=== PATIENT | female | born 1955 | race Caucasian/White ===

== ENCOUNTER → 2016-11-13 | Outpatient (CLI) | payer OTHER | LOC: FIMAGING 09:58 | PROVIDERS: ATTEND Physical Medicine & Rehabilitation | DX: M48.02 Spinal stenosis, cervical region (principal); M50.321 Other cervical disc degeneration at C4-C5 level; M50.322 Other cervical disc degeneration at C5-C6 level ==

== ENCOUNTER → 2017-02-02 | Outpatient (CLI) | payer OTHER | LOC: EEVIPCON 13:01 → FIMAGING 13:01 | PROVIDERS: ATTEND Obstetrics & Gynecology Gynecology | DX: Z12.31 Encounter for screening mammogram for malignant neoplasm of breast (principal); Z80.3 Family history of malignant neoplasm of breast | CPT/HCPCS: G0202 ==

== ENCOUNTER 2017-02-10 08:13 | Day surgery (SDC) | payer OTHER ==
[2017-02-10] MEDS ORDERED: NS 500 ML IV ONE (08:38)
[2017-02-10] MEDS ORDERED: LIDOCAINE 1% 2 ML INJ ID PRN (08:38)
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
[2017-02-10] MEDS ORDERED: ALBUTEROL 3 ML DEYVIAL IH PRN (09:29)
[2017-02-10] MEDS ORDERED: ACETAMINOPHEN 500 MG TAB PO PRN (09:29)
[2017-02-10] MEDS ORDERED: NALOXONE HCL 0.4 MG/ML INJ IVP PRN (09:29)
[2017-02-10] MEDS ORDERED: ONDANSETRON 4 MG/2 ML VIAL IVP PRN (09:29)
[2017-02-10] MEDS ORDERED: PROPOFOL/EMULSION 500 MG/50 ML BOTTLE IV ONE (09:56)
[2017-02-10] MEDS ORDERED: PROPOFOL 200 MG/20 ML VIAL ONE (09:56)
[2017-02-10] MEDS ORDERED: epHEDrine SULFATE 10 MG/ML SYR ONE (10:23)
--- NOTE | 2017-02-10 10:31 | GIREPORT ---
[facility] - Endoscopy Department Patient Name: Herlinda Childress Procedure Date: 02/10/2017 9:03 AM Patient Type: Outpatient Attending MD/ ER Physician: Alhaji Pardo MD Procedure: Colonoscopy Indications: Screening for colorectal malignant neoplasm, Family history of colon ca ncer in multiple first-degree relatives Providers: Alhaji Pardo MD Referring MD: Niles Contreras MD Medicines: General Anesthesia Complications: No immediate complications. Description of Procedure: After obtaining informed consent, the scope was passed under direct vis ion. Throughout the procedure, the patient's blood pressure, pulse, and oxyg en saturations were monitored continuously. The Colonoscope was introduced through the anus and advanced to the terminal ileum. The colonoscopy wa s somewhat difficult due to significant looping and a tortuous colon. Successful completion of the procedure was aided by using manual pressu re and straightening and shortening the scope to obtain bowel loop reducti on. The patient tolerated the procedure well. The quality of the bowel preparation was excellent. Findings: The terminal ileum appeared normal. The colon (entire examined portion) appeared normal. The perianal and digital rectal examinations were normal. Estimated Blood Loss: Estimated blood loss: none. Post Op Diagnosis: - The examined portion of the ileum was normal. - The entire examined colon is normal. - No specimens collected. Recommendation: - Discharge patient to home (with spouse). - Patient has a contact number available for emergencies. The signs and symptoms of potential delayed complications were discussed with the pat ient. Return to normal activities tomorrow. Written discharge instructions we re provided to the patient. - Advance diet as tolerated today. - Continue present medications. - Repeat colonoscopy in 5 years for surveillance. Attending Participation: I personally performed the entire procedure. Alhaji Pardo MD Alhaji Pardo MD 02/10/2017 10:31:15 AM This report has been signed electronicallyAlhaji Pardo MD Number of Addenda: 0 Note Initiated On: 02/10/2017 9:03 AM Total Procedure Duration Time 0 hours 22 minutes 30 seconds [email or web address]
--- NOTE | 2017-02-10 10:32 | POSTANESTH ---
Post Anesthetic Evaluation Cardiovascular Status: Normal, Stable Respiratory Status: Normal, Stable Level of Consciousness/Mental Status: Can Participate in Eval, Alert and Oriented Pain Control: Adequate, Prn Tx Ordered Nausea/Vomiting Control: Adequate, Prn Tx Ordered Complications Possibly Related to Anesthesia: None Noted
[2017-02-10 11:14] VITALS: BP 94/64; PULSE 67; RESP 16; TEMP 97.5; O2SAT 94
== END 2017-02-10 11:45 | disposition home or self-care (01) ==
LOC: FSGY 08:13
PROVIDERS: ATTEND Internal Medicine Gastroenterology
PROC: 0DJD8ZZ Inspection of Lower Intestinal Tract, Via Natural or Artificial Opening Endoscopic (ICD-10-PCS; principal; 2017-02-10 09:00)
DX: Z12.11 Encounter for screening for malignant neoplasm of colon (principal); Z86.010 Personal history of colon polyps; Z80.0 Family history of malignant neoplasm of digestive organs
CPT/HCPCS: J2704

== ENCOUNTER 2017-07-10 00:06 | Emergency (ER) | payer OTHER ==
[2017-07-10] MEDS ORDERED: ASPIRIN 81 MG CHEWABLE TAB PO ONE (00:16)
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
--- NOTE | 2017-07-10 00:25 | CPEKG ---
Heart Rate: 64 RR Interval: 938 P-R Interval: 152 QRSD Interval: 102 QT Interval: 444 QTC Interval: 458 P [place]: 58 QRS [place]: 83 T Wave [place]: 43 EKG Severity - BORDERLINE ECG - EKG Impression: SINUS RHYTHM EKG Impression: BORDERLINE RIGHT AXIS DEVIATION EKG Impression: BORDERLINE INFERIOR Q WAVES Electronically Signed By: Axel Massey 10-Jul-2017 06:44:13
[2017-07-10 01:03] LABS: INR 1.02 (0.83-1.16); PROTIME(PATIENT) 13.6 SEC (12.0-15.0)
[2017-07-10 01:10] LABS: PLATELET COUNT 264 10^3/uL (150-400)
[2017-07-10 01:16] LABS: CREATINE KINASE 74 IU/L (0-156)
[2017-07-10] MEDS ORDERED: LIDOCAINE 2% VISCOUS 15 ML UDCUP PO ONE (01:32)
[2017-07-10] MEDS ORDERED: MAG HYDROX/AL HYDROX/SIMETH 30 ML UDCUP PO ONE (01:32)
[2017-07-10] MEDS ORDERED: HYOSCYAMINE SULFATE 0.125 MG TAB PO ONE (01:32)
--- NOTE | 2017-07-10 04:58 | CPEKG ---
Heart Rate: 69 RR Interval: 870 P-R Interval: 160 QRSD Interval: 104 QT Interval: 440 QTC Interval: 472 P [place]: 66 QRS [place]: 85 T Wave [place]: 48 EKG Severity - OTHERWISE NORMAL ECG - EKG Impression: SINUS RHYTHM EKG Impression: BORDERLINE RIGHT AXIS DEVIATION Electronically Signed By: Axel Massey 10-Jul-2017 06:44:13
[2017-07-10 05:09] VITALS: BP 121/70
== END 2017-07-10 05:07 | disposition home or self-care (01) ==
DX: R07.9 Chest pain, unspecified (principal); Z91.040 Latex allergy status

== ENCOUNTER 2017-08-31 07:10 | Day surgery (SDC) | payer OTHER ==
[2017-08-31] MEDS ORDERED: LR 1,000 ML IV ONE (07:26)
[2017-08-31] MEDS ORDERED: LIDOCAINE 1% 2 ML INJ ID PRN (07:26)
[2017-08-31] MEDS ORDERED: LIDOCAINE 1% 2 ML INJ ONE (07:33)
[2017-08-31] MEDS ORDERED: ALBUTEROL 3 ML DEYVIAL IH PRN (08:13)
[2017-08-31] MEDS ORDERED: NALOXONE HCL 0.4 MG/ML INJ IVP PRN (08:13)
[2017-08-31] MEDS ORDERED: DEXAMETHASONE 4 MG/ML VIAL IVP PRN (08:13)
[2017-08-31] MEDS ORDERED: ONDANSETRON 4 MG/2 ML VIAL IVP PRN (08:13)
[2017-08-31] MEDS ORDERED: fentaNYL 100 MCG/2 ML INJ IVP PRN (08:13)
[2017-08-31] MEDS ORDERED: HYDROmorphONE/DILAUDID 1 MG/ML INJ IVP PRN (08:13)
--- NOTE | 2017-08-31 08:22 | PDHPUP ---
History & Physical Update H&P update statement: This history and physical update is based on an assessment of the patient which was completed after admission or registration (within 24 hours), but prior to the surgery/procedure. H&P update: H&P reviewed & patient examined, no change in patient's condition since H&P completed
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
[2017-08-31] MEDS ORDERED: PROPOFOL/EMULSION 500 MG/50 ML BOTTLE IV ONE (08:25)
[2017-08-31] MEDS ORDERED: fentaNYL 100 MCG/2 ML INJ ONE (08:29)
[2017-08-31] MEDS ORDERED: ONDANSETRON 4 MG/2 ML VIAL ONE (08:56)
[2017-08-31] MEDS ORDERED: KETOROLAC 30 MG/1 ML SDV ONE (08:56)
[2017-08-31] MEDS ORDERED: DEXAMETHASONE 4 MG/ML VIAL ONE (08:57)
--- NOTE | 2017-08-31 09:08 | POSTANESTH ---
Post Anesthetic Evaluation Cardiovascular Status: Normal, Stable Respiratory Status: Normal, Stable Level of Consciousness/Mental Status: Mildly Sleepy, Arousable Pain Control: Adequate, Prn Tx Ordered Nausea/Vomiting Control: Adequate, Prn Tx Ordered Complications Possibly Related to Anesthesia: None Noted
--- NOTE | 2017-08-31 09:51 | POSTOPPROG ---
Post Op Note Date of Operation: 08/31/17 Surgeon: Jemima Pierce Anesthesiologist: Demetrio Ward Anesthesia: LMA Pre-op Diagnosis: PMB , thickened EMS Post-op Diagnosis: uterine polyp Indication: as above Procedure: H/S polypectomy Findings: large endometrial polyp Inf/Abcess present in the surg proc area at time of surgery?: No EBL: Minimal Complications: none Specimen(s): endometrial
[2017-08-31 10:42] VITALS: BP 113/69
--- NOTE | 2017-08-31 11:16 | GOP ---
[f rep ] OPERATIVE REPORT DATE OF OPERATION: 08/31/2017 SURGEON: Jemima Pierce MD ANESTHESIOLOGIST: Demetrio Ward DO. PREOPERATIVE DIAGNOSIS: 1. Postmenopausal bleeding. 2. Thickened endometrial stripe. POSTOPERATIVE DIAGNOSIS: 1. Postmenopausal bleeding. 2. Thickened endometrial stripe. 3. Likely polyp. PROCEDURE PERFORMED: Hysteroscopic polypectomy. FINDINGS: Posterior wall, large, thick, polyp-looking tissue. ESTIMATED BLOOD LOSS: Minimal. INDICATIONS: The patient is a 61-year-old who is not on hormone therapy, has recently had cramping a nd bleeding. Ultrasound shows a thickened endometrium with some cystic components and this all measu res over 1 cm. Recommend hysteroscopic resection of the mass rather than repeat biopsy, which was do ne several years ago and showed disrupted polyp. DESCRIPTION OF PROCEDURE: With informed consent signed, patient taken to the operating room, placed under general anesthesia, placed in low dorsal lithotomy position, prepped and draped in the usual st erile fashion, and bladder previously emptied. Speculum placed in the vagina and tenaculum placed on the anterior lip of the cervix. Cervix dilated to 9 mm and hysteroscope placed using normal saline as a filling medium and findings as noted above. The [employer] larger scope was placed into t he uterine cavity using normal saline as a filling medium and findings as noted above. The TruClear rotary blade placed through the hysteroscope and complete resection of the polyp was done. Before an d after pictures were taken. Once it was felt that all the tissue was removed, the hysteroscope martita efrain. Patient placed in supine position, awakened in the operating room, taken to recovery room in able condition. Tolerated the procedure well. COMPLICATIONS: None. /[id number]
== END 2017-08-31 10:42 | disposition home or self-care (01) ==
LOC: FSGY 07:10
PROVIDERS: ATTEND Obstetrics & Gynecology Gynecology
PROC: 0UDB8ZX Extraction of Endometrium, Via Natural or Artificial Opening Endoscopic, Diagnostic (ICD-10-PCS; principal; 2017-08-31 08:30)
DX: N95.0 Postmenopausal bleeding (principal); N84.0 Polyp of corpus uteri; E03.9 Hypothyroidism, unspecified; R73.03 Prediabetes; Z88.2 Allergy status to sulfonamides
CPT/HCPCS: 58558; C1782; J1100; J1885; J2405; J2704; J3010

== ENCOUNTER → 2017-12-24 | Outpatient (CLI) | payer OTHER | LOC: FIMAGING 10:01 | PROVIDERS: ATTEND Internal Medicine Endocrinology, Diabetes & Metabolism | DX: Z13.820 Encounter for screening for osteoporosis (principal); M81.0 Age-related osteoporosis without current pathological fracture ==

== ENCOUNTER 2018-01-05 12:51 | Emergency (ER) | payer OTHER ==
--- NOTE | 2018-01-05 13:21 | EDPHY ---
H & P Time Seen by Provider: 01/05/18 13:05 HPI/ROS: HPI Possible allergic reaction. Neck and chest tightness. 62-year-old female by ambulance. Her is present in the room. She reports that on Wednesday she had a shingles vaccine. She reports that after this she developed flu-like symptoms which she described as fatigue, malaise and body aches. She reports that this persisted through Wednesday. She reports that after Wednesday she continued to have fatigue and malaise as well as a headache. She reports that her headache then resolved but she has continued to feel fatigued. She went to the gym today and did not feel well. Again describing fatigue. She reports that when she got back from the gym she started having a sensation of tightness in her throat, a sensation of difficulty swallowing and tightness in her upper chest. She denies any unusual ingestion. She does have some allergies but denies any contact with the substances. EMS established an IV. She was given 50 mg of IV Benadryl. ROS: Constitutional: No fever, no chills. As above. Eyes: No discharge. No changes in vision. ENT: No sore throat. No nasal congestion or rhinorrhea. As above. Respiratory: No cough. No shortness of breath. Cardiac: No chest pain, no palpitations. As above. Gastrointestinal: No abdominal pain, no vomiting, no diarrhea. Genitourinary: No hematuria. No dysuria or increased frequency with urination. Musculoskeletal: No back pain. No neck pain. No myalgias or arthralgias. Skin: No rashes. Neurological: No headache. No focal weakness or altered sensation. Past medical history: Tonsillectomy, head injury, D&C. Social history: Nonsmoker. Here with her . No alcohol. Physical Exam: General Appearance: Alert, no distress. Mildly anxious. This patient is responding to questions appropriately and in full sentences. This patient appears well-hydrated and well-nourished. Eyes: Pupils equal and round no pallor or injection. No lid edema, erythema or injection. ENT, Mouth: Mucous membranes are moist. The pharyngeal tissues are unremarkable. No edema or swelling. No asymmetry suggestive of abscess. No erythema or exudates. No stridor on auscultation of her neck. Normal upper airway sounds. No voice changes. No cervical, submandibular, submental lymphadenopathy. Respiratory: There are no retractions, lungs are clear to auscultation with good air movement bilaterally. Cardiovascular: Regular rate and rhythm. No murmur. Neurological: Motor sensory function is grossly intact. Cranial nerves are normal. Gait is normal. Skin: Warm and dry, no rashes. Musculoskeletal: Neck is supple and nontender. Extremities are symmetrical. All joints range without pain or impingement. Psychiatric: No agitation. No depression. Database: EKG: EKG time is 1:22 p.m.; EKG shows a narrow complex normal sinus rhythm with a ventricular rate of 65. Borderline right axis deviation noted. The MT, QRS, QT intervals are within normal limits. There are no ST-T wave changes indicative of ischemic or injury pattern. No evidence of right heart strain. Interpreted by me. Imaging: Soft tissue neck x-ray series: Normal. Interpreted by me. Procedures: Emergency department course: Triage vital signs reviewed. She is mildly hypertensive. Vital signs are otherwise normal. She is afebrile. IV established per EMS. She was given 50 mg of IV Benadryl per EMS. Her presentation is more consistent with an anxiety type reaction verses an allergic reaction. Do not feel that epinephrine or steroids required at this time. EKG obtained and reviewed by myself. 3:30 p.m., the patient was re-evaluated. Vital signs reviewed and are unremarkable. She is feeling better. Repeat pharyngeal exam is unremarkable. No stridor on auscultation of her neck. 4:30 p.m., patient re-evaluated, she is resting comfortably at this time. She feels comfortable going home and I feel she is safe for discharge. Repeat pharyngeal exam is unremarkable. No stridor on auscultation of her neck. No voice changes. Vital signs reviewed and are normal. Follow-up and return to emergency department precautions have been reviewed with her. All of her questions were answered. The patient was discharged from the emergency department in good condition with her . Differential Diagnosis: The differential diagnosis on this patient includes but is not limited to viral syndrome, anxiety reaction, allergic reaction. This represents a partial list of diagnoses considered. These considerations are based on history, physical exam, past history, reassessment and diagnostic testing. Smoking Status: Never smoked Constitutional: Initial Vital Signs Temperature (C) 37.2 C 01/05/18 12:52 Heart Rate 72 01/05/18 12:52 Respiratory Rate 16 01/05/18 12:52 Blood Pressure 146/87 H 01/05/18 12:52 O2 Sat (%) 100 01/05/18 12:52 O2 Delivery Mode Room Air Allergies/Adverse Reactions: propoxyphene napsylate [From Darvon-N] Allergy (Unknown, Verified 07/10/17 00:11 ) Sulfa (Sulfonamide Antibiotics) Allergy (Unknown, Verified 07/10/17 00:11) Other-Enter Comments latex Allergy (Verified 07/10/17 00:11) Other-Enter Comments ADHESIVE Allergy (Unknown, Uncoded 08/20/17 15:55) Rash Home Medications: Medication Instructions Recorded Vitamin B-12 02/03/17 CALCIUM 02/10/17 CO Q-10 02/10/17 Fish Oil 1,000 mg Capsule 02/10/17 VITAMIN D 02/10/17 Medical Decision Making - Diagnostics Imaging Results: Imaging Impressions Soft Tissue Neck X-Ray 01/05/18 13:17 Impression: Negative. No retropharyngeal soft tissue swelling or explanation for throat pain. - Data Points Laboratory Results: Laboratory Results 01/05/18 13:20 01/05/18 13:20 01/05/18 01/05/18 01/05/18 13:21 13:20 13:20 WBC 9.08 10^3/uL 10^3/uL (3.80-9.50) RBC 5.49 10^6/uL H 10^6/uL (4.18-5.33) Hgb 16.8 g/dL H g/dL (12.6-16.3) Hct 50.2 % H % (38.0-47.0) MCV 91.4 fL fL (81.5-99.8) MCH 30.6 pg pg (27.9-34.1) MCHC 33.5 g/dL g/dL (32.4-36.7) RDW 13.6 % % (11.5-15.2) Plt Count 300 10^3/uL 10^3/uL (150-400) MPV 10.1 fL fL (8.7-11.7) Neut % (Auto) 48.4 % % (39.3-74.2) Lymph % (Auto) 37.0 % % (15.0-45.0) [place] % (Auto) 12.2 % % (4.5-13.0) Eos % (Auto) 1.2 % % (0.6-7.6) Baso % (Auto) 0.9 % % (0.3-1.7) Nucleat RBC Rel Count 0.0 % % (0.0-0.2) Absolute Neuts (auto) 4.39 10^3/uL 10^3/uL (1.70-6.50) Absolute Lymphs (auto) 3.36 10^3/uL H 10^3/uL (1.00-3.00) Absolute Monos (auto) 1.11 10^3/uL H 10^3/uL (0.30-0.80) Absolute Eos (auto) 0.11 10^3/uL 10^3/uL (0.03-0.40) Absolute Basos (auto) 0.08 10^3/uL 10^3/uL (0.02-0.10) Absolute Nucleated RBC 0.00 10^3/uL 10^3/uL (0-0.01) Immature Gran % 0.3 % % (0.0-1.1) Immature Gran # 0.03 10^3/uL 10^3/uL (0.00-0.10) Sodium 138 mEq/L mEq/L (135-145) Potassium 4.4 mEq/L mEq/L (3.3-5.0) Chloride 99 mEq/L mEq/L (97-110) Carbon Dioxide 28 mEq/l mEq/l (22-31) Anion Gap 11 mEq/L mEq/L (6-14) BUN 22 mg/dL mg/dL (7-23) Creatinine 0.8 mg/dL mg/dL (0.6-1.0) Estimated GFR > 60 Glucose 105 mg/dL H mg/dL (70-100) Calcium 9.6 mg/dL mg/dL (8.5-10.4) POC Troponin I 0.01 ng/mL ng/mL (0.00-0.08) Point of Care Test Results: Chemistry 01/05/18 13:21 POC Troponin I 0.01 ng/mL ng/mL (0.00-0.08) Departure - Departure Disposition: Home, Routine, Self-Care Clinical Impression: Allergic reaction Condition: Good Instructions: General Allergic Reaction (ED) Additional Instructions: Read and follow provided instructions. Follow-up with your primary care physician tomorrow for re-evaluation. Benadryl dosin-50 mg every 6-8 hours for the next 1-2 days as needed. Pepcid: 20 mg twice daily, once in the morning and once in the evening for the next 2-3 days. Return to the emergency department for worsening symptoms, sensation of chest tightness, throat tightness, difficulty swallowing, facial swelling or other serious concerns. Referrals: Niles Contreras MD [Primary Care Provider] - As per Instructions
[2018-01-05 13:30] LABS: PLATELET COUNT 300 10^3/uL (150-400)
[2018-01-05 16:43] VITALS: BP 119/62
--- NOTE | 2018-01-05 21:25 | CPEKG ---
Test Reason : OPEN Blood Pressure : / mmHG Vent. Rate : 065 BPM Atrial Rate : 063 BPM P-R Int : 137 ms QRS Dur : 101 ms QT Int : 411 ms P-R-T Axes : 062 085 053 degrees QTc Int : 428 ms Sinus rhythm Borderline right axis deviation Confirmed by Patricia Reyes ([id number]) on 01/05/2018 9:25:07 PM Referred By: Confirmed By:Patricia Reyes
== END 2018-01-05 16:49 | disposition home or self-care (01) ==
LOC: EDUNIT#
DX: T78.40XA Allergy, unspecified, initial encounter (principal); X58.XXXA Exposure to other specified factors, initial encounter
CPT/HCPCS: 84484-PO

== ENCOUNTER → 2018-02-04 | Outpatient (CLI) | payer OTHER | LOC: FIMAGING 10:52 | PROVIDERS: ATTEND Obstetrics & Gynecology Gynecology | DX: Z12.31 Encounter for screening mammogram for malignant neoplasm of breast (principal); Z80.3 Family history of malignant neoplasm of breast ==

== ENCOUNTER → 2018-03-26 | Outpatient (CLI) | payer OTHER | LOC: FIMAGING 12:10 | PROVIDERS: ATTEND Internal Medicine | DX: R05 Cough (principal) ==